=== PATIENT | male | born 2000 | race Hispanic/Latino ===

== ENCOUNTER 2023-01-02 15:12 | Emergency (ER) | payer MEDICAID ==
[~2023-01-02] VITALS: Ht 172.7 cm; Wt 56.2 kg
[2023-01-02] MEDS ORDERED: ZPAK PO (16:56)
[2023-01-02] MEDS ORDERED: BENZONATATE200 MG PO (16:56)
[2023-01-02 17:14] VITALS: BP 128/79
== END 2023-01-02 17:15 | disposition home or self-care (01) ==
LOC: ED 15:12
DX: J06.9 Acute upper respiratory infection, unspecified (principal); Z20.822 Contact with and (suspected) exposure to COVID-19